=== PATIENT | male | born 1990 | race Caucasian/White ===

== ENCOUNTER 2022-11-19 20:39 | Emergency (ER) | payer MEDICAID ==
[~2022-11-19] VITALS: Ht 177.8 cm; Wt 63.5 kg
--- NOTE | 2022-11-19 20:43 | NUR ---
Patient placed in room 1A
--- NOTE | 2022-11-19 20:55 | NUR ---
Seizure precautions placed.
[2022-11-19] MEDS ORDERED: CHLORDIAZEPOXIDE HCL 25 MG CAPSULE PO ONE (21:00)
[2022-11-19] MEDS ORDERED: LORAZEPAM 2 MG/1 ML VIAL IV ONE (21:00)
[2022-11-19] MEDS ORDERED: IV NORMAL SALINE 1000 ML BAG IV ONE (21:00)
[2022-11-19] MEDS ORDERED: THIAMINE HCL 200 MG/2 ML VIAL IV ONE (21:00)
[2022-11-19] MEDS ORDERED: PYRIDOXINE HCL 100 MG/1 ML VIAL ONE (21:15)
[2022-11-19] MEDS ORDERED: CHLORDIAZEPOXIDE HCL 25 MG CAPSULE ONE (21:15)
[2022-11-19] MEDS ORDERED: LORAZEPAM 2 MG/1 ML VIAL ONE (21:16)
[2022-11-19 21:25] LABS: HEMATOCRIT 37.9 % (36.7-47.1); MEAN CORPUSCULAR HEMOGLOBIN 31.7 uug (23.8-33.4); MEAN CORPUSCULAR VOLUME 96.9 fL (73.0-96.2)
[2022-11-19 21:26] LABS: POTASSIUM 3.6 mmol/L (3.5-5.1)
[2022-11-19 21:28] LABS: PLATELET COUNT (AUTO) 43 K/uL (152-348)
[2022-11-19] MEDS ORDERED: POTASSIUM BICARBONATE/CIT AC 25 MEQ TABLET.EFF PO ONE (21:30)
[2022-11-19] MEDS ORDERED: THIAMINE HCL 200 MG/2 ML VIAL ONE (21:30)
[2022-11-19 21:32] LABS: BILIRUBIN,DIRECT 0.7 mg/dL (0.0-0.2); BILIRUBIN,TOTAL 0.9 mg/dL (0.2-1.0); TOTAL PROTEIN, SERUM 8.5 g/dL (6.4-8.2)
--- NOTE | 2022-11-19 21:53 | NUR ---
Pyroxidine HCL Vitamin B6 IV taken out by accident. Medication was not administered to patient and was returned.
[2022-11-19] MEDS ORDERED: POTASSIUM BICARBONATE/CIT AC 25 MEQ TABLET.EFF ONE (22:14)
[2022-11-19 22:29] LABS: BAND % (MANUAL) 1 % (0-10); LYMPHOCYTES % (MANUAL) 13 % (20-40); MONOCYTES % (MANUAL) 13 % (2-10); NEUTROPHILS % (MANUAL) 73 % (42-75)
--- NOTE | 2022-11-19 23:54 | NUR ---
Urine sample sent to lab
[2022-11-20] MEDS ORDERED: LORAZEPAM 2 MG/1 ML VIAL IV ONE (00:45)
[2022-11-20] MEDS ORDERED: CHLORDIAZEPOXIDE HCL 25 MG CAPSULE PO ONE (00:45)
[2022-11-20] MEDS ORDERED: LORAZEPAM 2 MG/1 ML VIAL ONE (00:50)
[2022-11-20] MEDS ORDERED: CHLORDIAZEPOXIDE HCL 25 MG CAPSULE ONE (00:50)
[2022-11-20] MEDS ORDERED: CHLO25CA22 PO (00:56)
--- NOTE | 2022-11-20 01:26 | NUR ---
Patient discharged to home in stable condition. Written and verbal after care instructions given. Patient verbalizes understanding of instructions. Stressed follow up or return to ER for worsening s/s.
[2022-11-20 01:28] VITALS: BP 122/75
== END 2022-11-20 01:29 | disposition home or self-care (01) ==
LOC: ER 20:41
DX: R56.9 Unspecified convulsions (principal); F10.239 Alcohol dependence with withdrawal, unspecified; D64.9 Anemia, unspecified; K70.10 Alcoholic hepatitis without ascites; E83.42 Hypomagnesemia; D69.6 Thrombocytopenia, unspecified; E87.20 Acidosis, unspecified; Z79.899 Other long term (current) drug therapy; Y90.0 Blood alcohol level of less than 20 mg/100 ml
CPT/HCPCS: 80076; 80048; 82607; 83735; 85007; 85025; 36415; 93005; 99291; 96361; 96374; 96375; 83605 ×2; 80320; 96376; J2060 ×2; J3411; J7040; 70030-TC; A4663; G0480; J3415